=== PATIENT | female | born 1930 | race Caucasian/White ===

== ENCOUNTER 2016-12-28 21:11 | Inpatient (IN) | payer MEDICARE, BC ==
[~2016-12-28] VITALS: Ht 152.4 cm; Wt 63.5 kg
[~2016-12-28 21:11] MED LIST: ACETAMINOPHEN325 MG PO; ALENDRONATE SOD70 MG PO; ATIVAN0.5 MG PO; BAYER CHEWABLE81 MG PO; BIOTENE MOUTHWASH OTH; BUSPAR 15 MG TA15 MG PO; BYSTOLIC10 MG PO; CELEXA20 MG PO; DULCOLAX5 MG PO; EFFER-K 25 MEQ25 MEQ PO; HYDROCHLOROTHIA50 MG PO; HYDROCODON-ACE1 EAC7 PO; IPRAT-ALBUT 0.5-3 ML UPD; K-DUR20 MEQ PO; LASIX20 MG PO; LEVAQUIN PREMI750 MG IV; LEVAQUIN750 MG PO; MAG-OX 400 MG400 MG PO; MAGNESIUM S1 G/50 ML IV; METOPROLOL TART25 MG PO; MIRAPEX0.125 MG PO; MUCINEX600 MG PO; MYSOLINE 50 MG50 MG PO; NITROSTAT0.4 MG SL; NYSTATIN15 GM TOPICAL; PHOS-NAK PAC1 PACKET PO; PLAVIX75 MG PO; POTASSIUM CHLO10 ME1 PO; POTASSIUM IV; POTASSIUM10 MEQ/101 IV; POTASSIUM20 MEQ/15 PO; PREMARIN45 GM VG; PROTONIX40 MG PO; REQUIP1 MG PO; SODIUM PHO40 MMOL/25 IV; SPIRIVA18 MCG INH; SYMBICORT 16010.2 GM INH; ULTRAM50 MG PO; VESICARE5 MG PO; [UNRECOGNIZED DRUG - REMARK]
[2016-12-28 23:48] LABS: BASOPHILS 0.1 % (0.0-2.0); EOSINOPHILS 3.5 % (0-7); HEMATOCRIT 38.3 % (36.0-48.0); IMMATURE GRANULOCYTES 0.1 % (0-5); MCH 27.5 pg (26.0-34.0); MCHC 31.3 g/dL (31.0-37.0); MCV 87.8 fL (80.0-100.0); MEAN PLATELET VOLUME 9.6 fL (7.4-10.4); MONOCYTES 7.8 % (2-11); NEUTROPHILS 68.5 % (40-80); PLATELET COUNT 175 10x3/uL (130-400); RBC 4.36 10x6/uL (4.00-5.40); RDW 14.2 % (11.5-14.5); WBC 8.3 10x3/uL (4.8-10.8)
[2016-12-29] VITALS (7 sets, daily range): BP systolic 98–130; BP diastolic 48–66; Ht 152.4 cm; Wt 63.5 kg
--- NOTE | 2016-12-29 00:02 | NUR ---
PATIENT RECEIVED TO ROOM VIA STRETCHER. ALERT AND ORIENTED. C/O PAIN TO RIGHT LEG. ORIENTED TO ROOM AND USE OF CALL LIGHT. DENIES ANY NEEDS AT THIS TIME. BED LOW. CALL LIGHT IN REACH
[2016-12-29 00:13] LABS: ALBUMIN 3.3 g/dL (3.4-5.0); ANION GAP 12.2 mmol/L (8-16); BILIRUBIN - TOTAL 0.35 mg/dL (0.2-1.3); CALCIUM 8.8 mg/dL (8.5-10.1); CARBON DIOXIDE 28.8 mmol/L (21.0-32.0); CREATININE - SERUM 1.1 mg/dL (0.6-1.3); PROTEIN - SERUM 6.3 g/dL (6.4-8.2)
[2016-12-29 00:45] LABS: APPEARANCE CLEAR (CLEAR); BILIRUBIN NEGATIVE (NEGATIVE); COLOR YELLOW (YELLOW); GLUCOSE NEGATIVE (NEGATIVE); KETONE NEGATIVE (NEGATIVE); LEUKOCYTE ESTERASE NEGATIVE (NEGATIVE); NITRITE NEGATIVE (NEGATIVE); PROTEIN NEGATIVE (NEGATIVE); UROBILINOGEN NORMAL (NORMAL)
[2016-12-29] MEDS ORDERED: SENNA PLUS TA1 UDTAB PO (01:07)
[2016-12-29] MEDS ORDERED: VITAMIN B COMPL1 TAB PO (01:08)
[2016-12-29] MEDS ORDERED: VITAMIN D2000 UNIT PO (01:08)
[2016-12-29] MEDS ORDERED: CELEXA20 MG PO (01:09)
[2016-12-29] MEDS ORDERED: ELAVIL10 MG PO (01:09)
[2016-12-29] MEDS ORDERED: EFFEXOR75 MG PO (01:09)
[2016-12-29] MEDS ORDERED: ATIVAN0.5 MG PO (01:10)
[2016-12-29] MEDS ORDERED: BUSPAR10 MG PO (01:10)
[2016-12-29] MEDS ORDERED: FUROSEMIDE20 MG PO (01:12)
[2016-12-29] MEDS ORDERED: BUSPAR 15 MG TA15 MG PO (01:12)
[2016-12-29] MEDS ORDERED: ISOSORBIDE MONO30 M1 PO (01:12)
[2016-12-29] MEDS ORDERED: PROLIA INJ 660 MG/M1 IJ (01:14)
[2016-12-29] MEDS ORDERED: DIFLUCAN100 MG PO (01:14)
[2016-12-29] MEDS ORDERED: CEREFOLIN TAB1 TAB PO (01:15)
--- NOTE | 2016-12-29 07:00 | NUR ---
REPORT RECEIVED FROM MURAL PAINTER NURSE. CALL LIGHT IN REACH.
--- NOTE | 2016-12-29 09:10 | NUR ---
ASSESSMENT COMPLETED. BED ALARM ON. FAMILY IN ROOM. CALL LIGHT IN REACH. WILL CONTINUE WITH PLAN OF CARE.
--- NOTE | 2016-12-29 10:14 | NUR ---
Patient Name: TYE RAE Admission Status: ER Accout number: [id number] Admission Date: 12-28-2016 : 1930 Admission Diagnosis: Attending: PAMELA Current LOS: 1 Anticipated DC Date: 12-29-2016 Planned Disposition: Nursing Facility [facility] Cert Primary Insurance: MEDICARE A & B Discharge Planning Comments: CM MET WITH PATIENTS SON AND HIS (ADALBERTO AND MARYCARMEN) REGARDING PATIENTS D/C NEEDS AND PLANS. PATIENT IS FROM [facility] AND WILL RETURN THERE AT DISCHARGE. PATIENT HAS BEEN A RESIDENT THERE FOR 3 YEARS PER SON. PATIENT IS WHEELCHAIR BOUND AND TOTAL DEPENDENT FOR HER CARE. PATIENTS PCP IS DR. VANN AND PHARMACY IS IN HOUSE. CM WILL CONTINUE TO FOLLOW PATIENT WITH D/C NEEDS AND PLANS. PCP DR. VANN PHARMACY IN HOUSE ADALBERTO RAE [phone] MARYCRAMEN [phone] Security Lead: Leslie Canales How many steps to enter\exit or inside your home? 0 0 * PCP DR. VANN 0 * Pharmacy IN HOUSE AT [facility] 0 * Preadmission Environment [facility] * Facility Name [facility] 0 * ADLs Total Dependent 0 * Equipment Wheelchair 0 * List name and contact numbers for known caregivers / representatives who currently or will assist patient after discharge: ADALBERTO RAE (SON) [phone] MARYCARMEN KYRA (DIL) [phone] 0 * Additional services required to return to the preadmission environment? Yes 0 * Can the patient safely return to the preadmission environment? Yes 0 * Has this patient been hospitalized within the prior 30 days at any hospital? No 0 Grand Total: 0
--- NOTE | 2016-12-29 11:15 | NUR ---
IV FLUIDS INITIATED PER ORDER. TRAMADOL PO WITH AM MEDS. SON IN ROOM. CALL LIGHT IN REACH.
--- NOTE | 2016-12-29 12:26 | NUR ---
DAUGHTER IN LAW AT THE BEDSIDE. CALL LIGHT IN REACH.
--- NOTE | 2016-12-29 12:39 | NUR ---
QUIET IN ROOM AT PRESENT DENIES ANY NEEDS AT THIS TIME.
--- NOTE | 2016-12-29 13:50 | NUR ---
NO NEEDS VOICED AT THIS TIME. CALL LIGHT IN REACH. FAMILY IN ROOM.
--- NOTE | 2016-12-29 15:57 | NUR ---
MALI AND KARAN PO. FAMILY IN ROOM. CALL LIGHT IN REACH.
--- NOTE | 2016-12-29 16:56 | NUR ---
FAMILY IN ROOM. NO NEEDS VOICED AT THIS TIME. CALL LIGHT IN REACH.
--- NOTE | 2016-12-29 18:20 | NUR ---
NO CHANGES IN INITIAL ASSESSMENT. BED ALARM ON. CALL LIGHT IN REACH. WILL CONTINUE WITH PLAN OF CARE.
--- NOTE | 2016-12-29 22:55 | NUR ---
PATIENT RESTING IN BED. C/O PAIN TO RIGHT LEG. PRN TRAMADOL GIVEN ORDERED. SCHEDULED MEDS GIVEN. SHIFT ASSESSMENT COMPLETED. NO NEEDS VOICED AT THIS TIME. BED LOW. CALL LIGHT IN REACH
[2016-12-30] VITALS: BP 118/42
[2016-12-30 04:00] VITALS: BP 123/58
--- NOTE | 2016-12-30 04:00 | NUR ---
PATIENT SLEEPING WITH NO DISTRESS NOTED. AGREE WITH MESS ATTENDANT CREW ASSESSMENT.
[2016-12-30 06:09] LABS: BASOPHILS 0.1 % (0.0-2.0); EOSINOPHILS 2.2 % (0-7); HEMATOCRIT 37.2 % (36.0-48.0); HEMOGLOBIN 11.7 g/dL (12-16); IMMATURE GRANULOCYTES 0.1 % (0-5); LYMPHOCYTES 16.2 % (15-50); MCH 27.7 pg (26.0-34.0); MCHC 31.5 g/dL (31.0-37.0); MCV 87.9 fL (80.0-100.0); MEAN PLATELET VOLUME 9.6 fL (7.4-10.4); MONOCYTES 9.6 % (2-11); NEUTROPHILS 71.8 % (40-80); PLATELET COUNT 177 10x3/uL (130-400); RBC 4.23 10x6/uL (4.00-5.40); RDW 14.4 % (11.5-14.5); WBC 6.9 10x3/uL (4.8-10.8)
[2016-12-30 06:32] LABS: ANION GAP 11.2 mmol/L (8-16); CALCIUM 7.8 mg/dL (8.5-10.1); CARBON DIOXIDE 27.3 mmol/L (21.0-32.0); CREATININE - SERUM 0.9 mg/dL (0.6-1.3); POTASSIUM - SERUM 3.5 mmol/L (3.5-5.1)
--- NOTE | 2016-12-30 07:00 | NUR ---
REPORT RECEIVED FROM STRUCTURAL STEEL WORKER APPRENTICE NURSE. CALL LIGHT IN REACH.
[2016-12-30] MEDS ORDERED: PROTONIX40 MG PO (07:38)
[2016-12-30] MEDS ORDERED: HYDROCODON-ACE1 EAC7 PO (07:40)
[2016-12-30 08:29] VITALS: BP 120/45
--- NOTE | 2016-12-30 08:45 | NUR ---
ASSESSMENT COMPLETED. NORCO PO WITH AM MEDS ADMINISTERED. STUDENTS NURSES IN ROOM. REMOVED IV WITH TIP INTACT AND PABON CATH WITH TIP INTACT. BED ALARM ON. CALL LIGHT IN REACH. WILL CONTINUE WITH PLAN OF CARE.
--- NOTE | 2016-12-30 09:00 | NUR ---
LYING IN BED,WITHOUT DISTRESS.CALL LIGHT IN REACH.
--- NOTE | 2016-12-30 10:58 | NUR ---
DRESSED PER SALES REPRESENTATIVE ELECTRIC SERVICE.
--- NOTE | 2016-12-30 11:09 | NUR ---
REPORT CALLED TO [facility]. DC'D TO [facility] VAN VIA WC WITH [facility] EMPLOYEE.
--- NOTE | 2016-12-30 13:36 | NUR ---
LE: PATIENT DISCHARGED BACK TO [facility] BY FACILITY [facility] TODAY TO HER [facility]O REGULATOR INSPECTOR BED. PATIENT HAS BEEN A RESIDENT THERE FOR ABOUT 2 YEARS
== END 2016-12-30 11:09 | DRG 558 ==
LOC: D.ER 21:11 → D.MS 23:14
PROVIDERS: Physician Assistant Medical; ADMIT Orthopaedic Surgery
PROC: 0T9B70Z Drainage of Bladder with Drainage Device, Via Natural or Artificial Opening (ICD-10-PCS; principal; 2016-12-28)
DX: M75.121 Complete rotator cuff tear or rupture of right shoulder, not specified as traumatic (principal); K22.10 Ulcer of esophagus without bleeding; S80.11XA Contusion of right lower leg, initial encounter; S80.12XA Contusion of left lower leg, initial encounter; W05.0XXA Fall from non-moving wheelchair, initial encounter; M16.11 Unilateral primary osteoarthritis, right hip; I10 Essential (primary) hypertension; I25.10 Atherosclerotic heart disease of native coronary artery without angina pectoris; R53.1 Weakness; F32.9 Major depressive disorder, single episode, unspecified; G25.0 Essential tremor; M81.0 Age-related osteoporosis without current pathological fracture; Z74.09 Other reduced mobility; J44.9 Chronic obstructive pulmonary disease, unspecified; D50.9 Iron deficiency anemia, unspecified; Z95.5 Presence of coronary angioplasty implant and graft; Z66 Do not resuscitate

== ENCOUNTER → 2018-08-19 12:20 | Outpatient (CLI) | payer MEDICARE, BC ==
[2016-12-29 13:44] VITALS: BMI 27.3
[~2018-08-19 12:20] MED LIST changes: +BUSPAR10 MG PO; +CEREFOLIN TAB1 TAB PO; +DIFLUCAN100 MG PO; +EFFEXOR75 MG PO; +ELAVIL10 MG PO; +FUROSEMIDE20 MG PO; +ISOSORBIDE MONO30 M1 PO; +PROLIA INJ 660 MG/M1 IJ; +SENNA PLUS TA1 UDTAB PO; +VITAMIN B COMPL1 TAB PO; +VITAMIN D2000 UNIT PO
== END | disposition home or self-care (01) ==
LOC: D.RAD 12:20
DX: R13.12 Dysphagia, oropharyngeal phase (principal)